=== PATIENT | female | born 1980 | race Asian ===

== ENCOUNTER 2017-04-02 15:49 | Day surgery (SDC) | payer OTHER ==
[2017-04-02] MEDS ORDERED: SODIUM CHLORIDE 1,000 ML IV STA (16:42)
--- NOTE | 2017-04-02 16:45 | PDOC ---
History of Present Illness - General Chief Complaint: Vaginal Bleeding Stated Complaint: VAG BLEEDING Time Seen by Provider: 04/02/17 16:03 History Source: Patient Exam Limitations: No Limitations - History of Present Illness Travel History: No Initial Comments: 04/02/17 17:04 36-year-old female presents to the emergency room for evaluation of prolonged vaginal bleeding for the past month associated with now shortness of breath on exertion and generalized fatigue. Patient was told by Dr. Shahid her FUR REPAIRER that she had polyps on her uterus requiring removal and was told today to come back to the ER for surgery. Patient states mild abdominal pain but states moderate bleeding with small clots presently. Patient states is on no iron pills but has history of TIA thyroid disease hypertension, and asthma. Timing/Duration: reports: constant Quality: reports: moderate, cramping Abdominal Pain Onset Location: reports: suprapubic Pain Radiation: reports: no radiation Activities at Onset: reports: none Aggravating Factors: improves with: None Alleviating Factors: improves with: None Past History - Travel Traveled outside of the country in the last 30 days: No - Past Medical History Allergies/Adverse Reactions: Allergies Allergy/AdvReac Type Severity Reaction Status Date / Time No Known Drug Allergies Allergy Verified 04/02/17 15:57 Home Medications: Ambulatory Orders Aspirin [Ecotrin] 81 mg PO DAILY 04/02/17 Atorvastatin Ca [Lipitor] 40 mg PO HS 04/02/17 Duloxetine HCl [Cymbalta] 30 mg PO DAILY 04/02/17 Hydrochlorothiazide 25 mg PO DAILY 04/02/17 Levothyroxine [Synthroid -] 50 mcg PO DAILY 04/02/17 Montelukast Na [Singulair -] 10 mg PO HS 04/02/17 Topiramate [Topiramate ER] 150 mg PO DAILY 04/02/17 Asthma: Yes Cancer: No Cardiac Disorders: No CVA: No CHF: No Dementia: No Diabetes: No GI Disorders: Yes (REFLUX) Disorders: No HTN: No Hypercholesterolemia: No Liver Disease: Yes ("ENZYMES ELEVATED") Seizures: No Thyroid Disease: No Other medical history: migraines - Surgical History Abdominal Surgery: No Appendectomy: No Cardiac Surgery: No Cholecystectomy: No Lung Surgery: No Neurologic Surgery: No Orthopedic Surgery: Yes (RT ANKLE SURGERY-PLATE INSERTED AND THEN REMOVED) - Psycho/Social/Smoking Cessation Hx Anxiety: No Suicidal Ideation: No Smoking History: Never smoked Have you smoked in the past 12 months: Yes Number of Cigarettes Smoked Daily: 10 If you are a former smoker, when did you quit?: 5YRS AGO Information on smoking cessation initiated: No 'Breaking Loose' booklet given: 03/20/17 Hx Alcohol Use: No Drug/Substance Use Hx: No Substance Use Type: Alcohol Hx Substance Use Treatment: No Patient Lives Alone: No Lives with/in: spouse/SO Review of Systems - Review of Systems Able to Perform ROS?: Yes HEENTM: No: Symptoms Reported Respiratory: Yes: SOB with Exertion Cardiac (ROS): Yes: Lightheadedness ABD/GI: Yes: Abdominal cramping : Yes: Discharge (vag bleeding) Musculoskeletal: No: Symptoms Reported Integumentary: No: Symptoms Reported Neurological: Yes: Dizziness Endocrine: No: Symptoms Reported Hematologic/Lymphatic: Yes: Anemia *Physical Exam - Vital Signs Last Vital Signs Temp Pulse Resp BP Pulse Ox 97.9 F 105 H 18 111/73 100 04/02/17 15:58 04/02/17 15:58 04/02/17 15:58 04/02/17 15:58 04/02/17 15:58 - Physical Exam General Appearance: Yes: Nourished, Appropriately Dressed. No: Apparent Distress HEENT: positive: EOMI, GENESIS, TMs Normal, Pharynx Normal, Pale Conjunctivae Respiratory/Chest: positive: Lungs Clear, Normal Breath Sounds. negative: Respiratory Distress, Accessory Muscle Use Cardiovascular: positive: Regular Rhythm, Regular Rate (91 on ekg). negative: Murmur Female Pelvic Exam: positive: cervical os closed, vaginal bleeding (moderate amt of dark red blood in vault) Gastrointestinal/Abdominal: positive: Normal Bowel Sounds, Soft, Tenderness ( midsuprapubic) Heart Score/ECG Review - ECG Intrepretation Rhythm: Regular Rhythm (91 with flattened t waves in V1 and V2 AND V4 V5 and V6 not seen on EKG noted August 2016.) ED Treatment Course - LABORATORY CBC & Chemistry Diagram: 04/02/17 17:05 04/02/17 17:05 Medical Decision Making - Medical Decision Making 04/02/17 17:35 Pt with uterine polyps causing prolonged bleeding and symptomatic shortness of breath or weakness. Patient pending D&C to be performed by Dr. Shahid today. Patient has remained nothing by mouth since this morning. Patient ordered for preop labs IV fluids and urine along with EKG. *DC/Admit/Observation/Transfer Diagnosis at time of Disposition: Weakness, Vaginal bleeding, abnormal, Uterine polyp - Discharge Dispostion Admit: Yes - Referrals Referrals: Abel Shahid MD [Primary Care Provider] -
[2017-04-02 17:25] LABS: BASOPHIL 1.5 % (0-2.0); EOSINOPHIL 3.6 % (0-4.5); MCH 30.9 pg (25.7-33.7); MCHC 33.9 g/dl (32.0-36.0); MEAN PLT VOLUME 9.3 fl (7.5-11.1); NEUTROPHILS 58.7 % (42.8-82.8); PLATELET COUNT 360 K/MM3 (134-434); RDW 13.7 % (11.6-15.6); WHITE BLOOD COUNT 12.1 K/mm3 (4.0-10.0)
[2017-04-02 17:38] LABS: INR 0.99 (0.82-1.09); PROTHROMBIN TIME (PATIENT) 10.9 SEC (9.98-11.88)
[2017-04-02 17:47] LABS: URINE APPEARANCE SLCLOUDY; URINE BILIRUBIN NEGATIVE (NEGATIVE); URINE BLOOD 3+ (NEGATIVE); URINE COLOR YELLOW; URINE GLUCOSE (UA) NEGATIVE (NEGATIVE); URINE KETONE NEGATIVE (NEGATIVE); URINE LEUK ESTERASE NEGATIVE (NEGATIVE); URINE NITRITE NEGATIVE (NEGATIVE); URINE PROTEIN NEGATIVE (NEGATIVE); URINE UROBILINOGEN NEGATIVE mg/dL (0.2-1.0)
--- NOTE | 2017-04-02 17:54 | HP ---
Past Medical History - Primary Care Physician PCP:: Abel Shahid - Admission Chief Complaint: 36yo female with menometrorrhagia came to ER with c/o felling weak and dizzy History of Present Illness: Pt has been c/o vaginal bleeding since 02/21/17 every day. She was scheduled for hysteroscopy, D&C at [facility] but insurance refused authorization. She was seen in ER at [facility] and diagnosed with a suspected uterine polyp. The pt called today with c/o feeling weak and dizzy with tachycardia. 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 No: Cirrhosis, Cholelithiasis, Cholecystitis, Choledocholithiasis, Hepatitis A, Hepatitis B, Hepatitis C Renal/: No: Renal Failure, Renal Inusuff, BPH, Cancer, Hematuria, Hemodialysis , Neurogenic Bladder, Renal Calculi, UTI, Other Reproductive: Yes: Fibroids ...Para: 2 Heme/Onc: Yes: Anemia Infectious Disease: No: AIDS, C-Diff, Herpes Zoster, HIV, MRSA, STD's, Tuberculosis, VREF, Other Psych: Yes: Anxiety Musculoskeletal: No: Bursitis, Chronic low back pain, Hemiparesis, Hemiplegia, Osteoarthritis, Paraplegia, Other ENT: Yes: Allergic Rhinitis Endocrine: Yes: Diabetes Mellitus, Hypothyroidism Additional Medical History: Obesity - Past Surgical History Hx Myomectomy: Yes Hx Transabdominal Cerclage: No - Smoking History Smoking history: Never smoked Have you smoked in the past 12 months: Yes Aproximately how many cigarettes per day: 10 (began smoking again) If you are a former smoker, when did you quit?: 5YRS AGO - Alcohol/Substance Use Hx Alcohol Use: No History of Substance Use: reports: None - Social History Usual Living Arrangement: Yes: With Spouse ADL: Independent History of Recent Travel: No Home Medications - Allergies Allergies/Adverse Reactions: Allergies Allergy/AdvReac Type Severity Reaction Status Date / Time No Known Drug Allergies Allergy Verified 04/02/17 15:57 - Home Medications Home Medications: Ambulatory Orders Aspirin [Ecotrin] 81 mg PO DAILY 04/02/17 Atorvastatin Ca [Lipitor] 40 mg PO HS 04/02/17 Duloxetine HCl [Cymbalta] 30 mg PO DAILY 04/02/17 Hydrochlorothiazide 25 mg PO DAILY 04/02/17 Levothyroxine [Synthroid -] 50 mcg PO DAILY 04/02/17 Montelukast Na [Singulair -] 10 mg PO HS 04/02/17 Topiramate [Topiramate ER] 150 mg PO DAILY 04/02/17 Family Disease History - Family Disease History Family History: Denies Review of Systems - Review of Systems Constitutional: reports: Lethargy, Weakness Eyes: reports: No Symptoms HENT: reports: No Symptoms Neck: reports: No Symptoms Cardiovascular: reports: No Symptoms Respiratory: reports: No Symptoms Gastrointestinal: reports: No Symptoms Genitourinary: reports: Vaginal Bleeding Breasts: reports: No Symptoms Reported Musculoskeletal: reports: No Symptoms Integumentary: reports: No Symptoms Neurological: reports: No Symptoms Endocrine: reports: No Symptoms Hematology/Lymphatic: reports: No Symptoms Psychiatric: reports: No Symptoms Pain Intensity: 2 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 Vital Signs: Vital Signs Temperature 97.9 F 04/02/17 15:58 Pulse Rate 105 H 04/02/17 15:58 Respiratory Rate 18 04/02/17 15:58 Blood Pressure 111/73 04/02/17 15:58 O2 Sat by Pulse Oximetry (%) 100 04/02/17 15:58 Constitutional: Yes: No Distress, Calm, Obese Eyes: Yes: WNL, Conjunctiva Clear HENT: Yes: WNL, Atraumatic, Normocephalic Neck: Yes: WNL, Supple, Trachea Midline Cardiovascular: Yes: WNL, Regular Rate and Rhythm Respiratory: Yes: WNL, Regular, CTA Bilaterally Gastrointestinal: Yes: WNL, Normal Bowel Sounds, Soft, Abdomen, Obese ...Rectal Exam: Yes: WNL Renal/: Yes: WNL Pelvis: Yes: WNL Internal Exam Deferred: No Vaginal Exam: Yes: Bleeding Cervix: Yes: Normal Uterus: Yes: Normal Breast(s): Yes: WNL Musculoskeletal: Yes: WNL Extremities: Yes: WNL Edema: No Integumentary: Yes: WNL Neurological: Yes: WNL, Alert, Oriented ...Motor Strength: WNL Psychiatric: Yes: WNL, Alert, Oriented Labs: CBC, BMP 04/02/17 17:05 Imaging - Results Ultrasound: Report Reviewed Assessment/Plan 36yo P2 wit menometrorrhagia and anemia, symptomatic, came to ER. The pt was admitted for evaluation, hysteroscopy, D&C. We had discussed the risks, benefits , alternatives of surgery at length including but not limited to infection, bleeding, scarring, perforation, amenorrhea, infertility, hysterectomy, etc. The pt verbalized understanding and requested to proceed with surgery. I emphasized that all surgeries have risks and no guarantees can be provided
[2017-04-02 18:01] LABS: ANION GAP 12 (8-16); BILIRUBIN,TOTAL 0.6 mg/dL (0.2-1.0); CALCIUM 8.6 mg/dL (8.5-10.1); CO2 23 mmol/L (21-32); GLUCOSE,RANDOM 85 mg/dL (74-106); SGOT/AST 20 U/L (15-37); SGPT/ALT 25 U/L (12-78)
[2017-04-02 18:03] LABS: ALK PHOS 53 U/L (45-117); TOT PROT 7.1 g/dl (6.4-8.2)
--- NOTE | 2017-04-02 18:17 | PDOC ---
*Physical Exam - Vital Signs Last Vital Signs Temp Pulse Resp BP Pulse Ox 97.9 F 105 H 18 111/73 100 04/02/17 15:58 04/02/17 15:58 04/02/17 15:58 04/02/17 15:58 04/02/17 15:58 - Physical Exam Comments: 04/02/17 18:17 The patient was examined by [MALDONADO Ureña] under my direct supervision. I personally evaluated the patient. I concur with the above findings and the plan of care. ED Treatment Course - LABORATORY CBC & Chemistry Diagram: 04/02/17 17:05 04/02/17 17:05 - ADDITIONAL ORDERS Additional order review: Laboratory Results 04/02/17 04/02/17 04/02/17 17:12 17:05 17:05 INR Sodium 139 Potassium 3.5 Chloride 104 Carbon Dioxide 23 Anion Gap 12 BUN 14 Creatinine 1.0 Creat Clearance w eGFR > 60 Random Glucose 85 Calcium 8.6 Total Bilirubin 0.6 D AST 20 D ALT 25 Alkaline Phosphatase 53 Total Protein 7.1 Albumin 4.0 Urine Color Yellow Urine Appearance Slcloudy Urine pH 5.0 Urine Protein Negative Urine Glucose (UA) Negative Urine Ketones Negative Urine Blood 3+ H Urine Nitrite Negative Urine Bilirubin Negative Urine Urobilinogen Negative Ur Leukocyte Esterase Negative Urine HCG, Qual Negative Blood Type A POSITIVE Antibody Screen Negative 04/02/17 17:05 INR 0.99 Sodium Potassium Chloride Carbon Dioxide Anion Gap BUN Creatinine Creat Clearance w eGFR Random Glucose Calcium Total Bilirubin AST ALT Alkaline Phosphatase Total Protein Albumin Urine Color Urine Appearance Urine pH Urine Protein Urine Glucose (UA) Urine Ketones Urine Blood Urine Nitrite Urine Bilirubin Urine Urobilinogen Ur Leukocyte Esterase Urine HCG, Qual Blood Type Antibody Screen 04/02/17 17:05 RBC 3.61 D MCV 91.0 MCHC 33.9 RDW 13.7 MPV 9.3 Neutrophils % 58.7 Lymphocytes % 30.9 Monocytes % 5.3 Eosinophils % 3.6 D Basophils % 1.5 - Medications Given in the ED: ED Medications Discontinued Medications Generic Name Dose Route Start Last Admin Trade Name Freq PRN Reason Stop Dose Admin Sodium Chloride 1,000 mls @ 1,000 mls/hr 04/02/17 16:42 04/02/17 17:13 Normal Saline - IV 04/02/17 17:41 1,000 mls/hr ASDIR STA Administration *DC/Admit/Observation/Transfer Diagnosis at time of Disposition: Weakness, Vaginal bleeding, abnormal, Uterine polyp - Referrals Referrals: Abel Shahid MD [Primary Care Provider] - - Patient Instructions - Post Discharge Activity
[2017-04-02] MEDS ORDERED: MIDAZOLAM HCL 2 MG/2 ML SINGLE DOSE VIAL ONE (18:19)
[2017-04-02] MEDS ORDERED: PROPOFOL 20 ML ONE ×3 (18:20)
[2017-04-02] MEDS ORDERED: ceFAZolin SODIUM 1 GM VIAL IVPB ONE (18:27)
[2017-04-02 18:39] LABS: GRANULAR CASTS 2 /lpf; URINE HYALINE CAST 5 /lpf; URINE MUCUS RARE; URINE RBC 284 /hpf (0-3); URINE WBC 4 /hpf (3-5)
[2017-04-02] MEDS ORDERED: ONDANSETRON 4 MG/2 ML VIAL IVPUSH PRN (19:06)
[2017-04-02] MEDS ORDERED: oxyCODONE HCL 5 MG TABLET PO PRN ×2 (19:06)
--- NOTE | 2017-04-02 19:07 | OP ---
Operative Note - Note: Operative Date: 04/02/17 Pre-Operative Diagnosis: Menometrorrhagia, symptomatic anemia Operation: Hysteroscopy, D&C, polypectomy Findings: Active uterine bleeding on EUA. Enlarged uterine cavity with thick polypoid endometrium on hysteroscopy. 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
[2017-04-02] MEDS ORDERED: LACTATED RINGERS SOLUTION 1,000 ML IV SCH (19:15)
[2017-04-02 19:20] VITALS: BMI 29.2
[2017-04-02 19:36] VITALS: TEMP 97.7
[2017-04-02 21:00] VITALS: PULSE 84
[2017-04-02 21:01] VITALS: BP 115/70
--- NOTE | 2017-04-03 15:34 | EKG ---
Test Reason : Blood Pressure : / mmHG Vent. Rate : 091 BPM Atrial Rate : 091 BPM P-R Int : 158 ms QRS Dur : 066 ms QT Int : 328 ms P-R-T Axes : 006 030 -31 degrees QTc Int : 403 ms NORMAL SINUS RHYTHM NONSPECIFIC T WAVE ABNORMALITY ABNORMAL ECG WHEN COMPARED WITH ECG OF 30-AUG-2015 18:47, NONSPECIFIC T WAVE ABNORMALITY NOW EVIDENT IN ANTERIOR LEADS Confirmed by ESSIE WASHINGTON, BRANDEN ([id number]) on 04/03/2017 3:33:40 PM Referred By: Confirmed By:BRANDEN FOUNTAIN MD
--- NOTE | 2017-04-04 17:12 | PATH ---
Surgical Pathology Report Patient Name: JUANITA SON [facility]. Rec. #: [id number] /Age/Gender: 1980 (Age: 36) / F Account: [id number] Location: AMBULATORY SURG Taken: 04/03/2017 Received: 04/03/2017 Reported: 04/04/2017 Physicians: Abel Shahid M.D. Specimen(s) Received ENDOMETRIAL CURETTINGS AND POLYPS Clinical History Vaginal bleeding Final Diagnosis ENDOMETRIUM, CURETTING AND POLYPECTOMY: DISORDERED PROLIFERATIVE ENDOMETRIUM WITH AREAS OF STROMAL AND GLANDULAR BREAKDOWN. AREAS SUGGESTIVE OF BENIGN ENDOMETRIAL POLYP PRESENT. NO ENDOMETRIAL HYPERPLASIA OR CARCINOMA IDENTIFIED. Electronically Signed Tariq Olivo M.D. Gross Description Received in formalin labeled "endometrial curettings and polyps," is a 7.5 x 6.0 x 1.0 cm aggregate of conteh-red soft tissue fragments admixed with blood clot. The specimen is entirely submitted in 10 cassettes. /04/03/2017 saudi04/03/2017
== END 2017-04-02 21:31 | disposition home or self-care (01) ==
LOC: JER 15:49 → JASUSAT 16:45 → JER 17:45 → J6S 20:33 → JASUSAT 21:31
PROVIDERS: ATTEND Obstetrics & Gynecology
PROC: 0UB98ZX Excision of Uterus, Via Natural or Artificial Opening Endoscopic, Diagnostic (ICD-10-PCS; principal; 2017-04-02 18:00)
PROC: 0UDB8ZX Extraction of Endometrium, Via Natural or Artificial Opening Endoscopic, Diagnostic (ICD-10-PCS; 2017-04-02 18:00)
DX: N92.1 Excessive and frequent menstruation with irregular cycle (principal); D64.9 Anemia, unspecified; N84.0 Polyp of corpus uteri
CPT/HCPCS: 36415; 80053; 81003; 81015; 84703; 85025; 85610; 86850; 86900; 86901; 88305-TC; 93005; 93010; 94760; 99284-25